=== PATIENT | female | born 1955 | race Caucasian/White ===

== ENCOUNTER 2019-12-08 08:52 | Emergency (ER) | payer MEDICARE, MEDICAID ==
[~2019-12-08] VITALS: Ht 167.6 cm; Wt 90.6 kg
[2019-12-08] MEDS ORDERED: benzonatate 100mg capsule PO ONE (10:00)
[2019-12-08] MEDS ORDERED: ibuprofen 200mg tablet PO ONE (10:00)
[2019-12-08] MEDS ORDERED: BENZ-16 PO (10:28)
[2019-12-08 11:29] VITALS: BP 155/66
== END 2019-12-08 11:30 | disposition home or self-care (01) ==
LOC: ER 08:53
DX: J06.9 Acute upper respiratory infection, unspecified (principal); R05 Cough; R07.89 Other chest pain; I10 Essential (primary) hypertension; E11.9 Type 2 diabetes mellitus without complications; Z88.6 Allergy status to analgesic agent; Z88.5 Allergy status to narcotic agent
CPT/HCPCS: 71046; 87502; 87503; 93005; 99285